=== PATIENT | female | born 1945 | race African-American/Black ===

== ENCOUNTER 2024-01-01 14:02 | Emergency (ER) | payer MEDICARE, OTHER ==
[~2024-01-01] VITALS: Ht 152.4 cm; Wt 80.0 kg
[2024-01-01 14:17] VITALS: BP 182/92; PULSE 72; RESP 20; TEMP 99; O2SAT 99
== END 2024-01-01 14:45 | disposition left against medical advice (07) ==
LOC: ER 14:02
DX: R51.9 Headache, unspecified (principal); Z53.21 Procedure and treatment not carried out due to patient leaving prior to being seen by health care provider